=== PATIENT | male | born 1995 | race Caucasian/White ===

== ENCOUNTER 2017-08-11 09:32 | Emergency (ER) | payer OTHER ==
[~2017-08-11] VITALS: Ht 188 cm; Wt 80.0 kg
[2017-08-11] MEDS ORDERED: SODIUM CHLORIDE 0.9% 1,000 ML IV ONE (09:48)
[2017-08-11] MEDS ORDERED: LIDOCAINE 1%, 20ML ONE (09:52)
[2017-08-11] MEDS ORDERED: SODIUM CHLORIDE 0.9% 1,000ML IVBOLUS ONE (10:00)
[2017-08-11] MEDS ORDERED: ONDANSETRON 2MG/ML, 2ML IVPush ONE (10:00)
[2017-08-11] MEDS ORDERED: SODIUM CHLORIDE FLUSH 10ML SYR IVF ONE (10:00)
[2017-08-11 10:32] LABS: HEMATOCRIT 49.3 % (39.2-51.8); HEMOGLOBIN 16.9 g/dL (13.7-18.0)
[2017-08-11 10:46] LABS: ASPARTATE AMINO TRANSFERASE 11 U/L (15-37); BLOOD UREA NITROGEN 10 mg/dL (7-18)
[2017-08-11] MEDS ORDERED: ONDANSETRON 2MG/ML, 2ML ONE (11:04)
[2017-08-11 11:57] LABS: GLUCOSE, CSF 59 mg/dL (40-80)
[2017-08-11 13:38] LABS: DAU SCREEN DISCLAIMER
[2017-08-11 13:53] VITALS: BP 131/47
== END 2017-08-11 14:24 | disposition home or self-care (01) ==
LOC: ED 14:10
DX: F12.10 Cannabis abuse, uncomplicated (principal); R41.82 Altered mental status, unspecified
CPT/HCPCS: 36415; 62270; 70450; 71010; 80053; 80307; 81003; 82140; 82945; 83605; 84157; 85025; 87040; 87070; 87205; 87252; 89051; 93005; 96361; 96374; 99285; J2405; J7030

== ENCOUNTER 2018-11-17 13:59 | Day surgery (SDC) | payer OTHER ==
[~2018-11-17] VITALS: Ht 188 cm; Wt 77.9 kg
[2018-11-17] MEDS ORDERED: LACTATED RINGERS 1,000 ML IV SCH ×2 (14:29→19:00)
[2018-11-17 14:30] VITALS: BP 134/86
[2018-11-17] MEDS ORDERED: OxyconTIN ER 20 MG TAB.ER PO ONE (14:30)
[2018-11-17] MEDS ORDERED: SCOPOLAMINE PATCH, 1.5MG PATCH.TD72 TD ONE (14:30)
[2018-11-17] MEDS ORDERED: GABAPENTIN 300 MG CAPSULE PO ONE (14:30)
[2018-11-17] MEDS ORDERED: ACETAMINOPHEN 500 MG TABLET PO ONE (14:30)
[2018-11-17] MEDS ORDERED: ONDANSETRON ODT 8 MG PO ONE (14:30)
[2018-11-17] MEDS ORDERED: LIDOCAINE-MPF 2% ,5ML ONE (14:39)
[2018-11-17] MEDS ORDERED: FENTANYL PF 250 MCG/5ML ONE (14:39)
[2018-11-17] MEDS ORDERED: MIDAZOLAM 1 MG/ML, 2ML ONE (14:39)
[2018-11-17] MEDS ORDERED: PROPOFOL 10 MG/ML, 20ML ONE (14:39)
[2018-11-17] MEDS ORDERED: WATER-INJECTION,STERILE 10 ML IV ONE (14:40)
[2018-11-17] MEDS ORDERED: CEFAZOLIN 1,000 MG ONE ×2 (14:40)
[2018-11-17] MEDS ORDERED: DEXAMETHASONE 4 MG/ML, 1ML ONE ×2 (14:43)
[2018-11-17] MEDS ORDERED: ONDANSETRON 2MG/ML, 2ML ONE ×3 (14:43→18:12)
[2018-11-17] MEDS ORDERED: PLEASE ENTER HEIGHT AND WEIGHT MC SCH (15:00)
[2018-11-17] MEDS ORDERED: NO MEDS (15:00)
[2018-11-17] MEDS ORDERED: ONDANSETRON ODT 8 MG ONE ×2 (15:12)
[2018-11-17] MEDS ORDERED: ACETAMINOPHEN 500 MG TABLET ONE ×2 (15:12)
[2018-11-17] MEDS ORDERED: OxyconTIN ER 20 MG TAB.ER ONE ×2 (15:12)
[2018-11-17] MEDS ORDERED: GABAPENTIN 300 MG CAPSULE ONE ×2 (15:12)
[2018-11-17] MEDS ORDERED: KETOROLAC 30 MG/1 ML ONE (15:43)
[2018-11-17] MEDS ORDERED: BUPIVACAINE/PF-EPI 0.5% 1:200K INFIL ONE (16:15)
[2018-11-17] MEDS ORDERED: ONDANSETRON 2MG/ML, 2ML IV PRN ×2 (16:30→19:00)
[2018-11-17] MEDS ORDERED: HYDROmorphone 2 MG/ML, 1ML IVPush PRN (16:30)
[2018-11-17] MEDS ORDERED: OXYcodone 5 MG/5 ML ORAL.SOL UDC PO PRN (16:30)
[2018-11-17] MEDS ORDERED: MIDAZOLAM 1 MG/ML, 2ML IV PRN (16:30)
[2018-11-17] MEDS ORDERED: PROMETHAZINE 25 MG/ML, 1ML IV PRN (16:30)
[2018-11-17] MEDS ORDERED: ALBUTEROL/IPRATROPIUM 2.5MG/0.5MG, 3 ML NPPB PRN (16:30)
[2018-11-17] MEDS ORDERED: FENTANYL PF 100 MCG/2ML IV PRN (16:30)
[2018-11-17] MEDS ORDERED: MEPERIDINE/PF 25MG/0.5ML IVPush PRN (16:30)
[2018-11-17] MEDS ORDERED: MEPERIDINE/PF 50 MG/ML ONE (17:26)
[2018-11-17] MEDS ORDERED: OXYcodone 5 MG/5 ML ORAL.SOL UDC ONE (17:27)
== END 2018-11-17 21:40 | disposition home or self-care (01) ==
LOC: OR 13:59 → 4NOR 18:29 → OR 21:40
PROVIDERS: ATTEND Orthopaedic Surgery
DX: S66.123A Laceration of flexor muscle, fascia and tendon of left middle finger at wrist and hand level, initial encounter (principal); S64.22XA Injury of radial nerve at wrist and hand level of left arm, initial encounter; S61.213A Laceration without foreign body of left middle finger without damage to nail, initial encounter; X58.XXXA Exposure to other specified factors, initial encounter; Y93.89 Activity, other specified; Y92.89 Other specified places as the place of occurrence of the external cause; Y99.8 Other external cause status; Z87.891 Personal history of nicotine dependence
CPT/HCPCS: 26350; 64831; J0690; J1100; J1885; J2175; J2250; J2405; J2704; J3010; J3490; Q0162; G0378